=== PATIENT | male | born 2000 | race Asian ===

== ENCOUNTER 2024-06-29 22:40 | Emergency (ER) | payer BC ==
[2024-06-29] MEDS ORDERED: Lidocaine 1% w/Epinephrine 1:100K 20 ML VIAL ONE (23:58)
== END 2024-06-30 00:43 | disposition home or self-care (01) ==
LOC: ERS 22:40
DX: S01.419A Laceration without foreign body of unspecified cheek and temporomandibular area, initial encounter (principal); S80.212A Abrasion, left knee, initial encounter; S80.211A Abrasion, right knee, initial encounter; S50.312A Abrasion of left elbow, initial encounter; S50.311A Abrasion of right elbow, initial encounter; S50.812A Abrasion of left forearm, initial encounter; S50.811A Abrasion of right forearm, initial encounter; V00.141A Fall from scooter (nonmotorized), initial encounter
CPT/HCPCS: 12001; 99283